=== PATIENT | male | born 1985 | race Caucasian/White ===

== ENCOUNTER 2018-01-22 19:20 | Emergency (ER) | payer MEDICAID ==
[2018-01-22 19:30] VITALS: BP 110/74
--- NOTE | 2018-01-22 20:07 | EDPHY ---
H & P Time Seen by Provider: 01/22/18 19:23 HPI/ROS: 32 yo M presents c/o twisted his right ankle. Review of systems As per HPI General no fever no chills no weakness HEENT no eye pain no eye discharge. No eye redness, no sore throat Respiratory no cough, no shortness of breath Cardiac no chest pain, no peripheral edema GI no abdominal pain, no diarrhea, no constipation, no nausea, no vomiting no flank pain, no hematuria, no dysuria Musculoskeletal no myalgias, positive joint pain Heme no easy bruising, no easy bleeding Endo no polyuria, no polydipsia Skin no rashes, no pruritus Neuro no syncope, no dizziness, no headaches Psych is no suicidal ideation, no homicidal ideation Past Medical/Surgical History: Dry skin Social History: Occasional alcohol Smoking Status: Current every day smoker Physical Exam: 32-year-old male Alert and oriented in no acute distress nontoxic appearance, afebrile Atraumatic normocephalic Neck no JVD Lungs clear to auscultation, no respiratory distress Heart regular rate and rhythm Extremities no cyanosis clubbing edema Right ankle-right lateral malleolus with tenderness and swelling, no gross instability, dorsalis pedis intact, capillary refill intact Constitutional: Initial Vital Signs Temperature (C) 36.6 C 01/22/18 19:28 Heart Rate 105 H 01/22/18 19:28 Respiratory Rate 18 01/22/18 19:28 Blood Pressure 110/74 01/22/18 19:28 O2 Sat (%) 94 01/22/18 19:28 O2 Delivery Mode Room Air Allergies/Adverse Reactions: c-clor Allergy (Uncoded 01/22/18 19:24) Home Medications: Medication Instructions Recorded NK [No Known Home Meds] 01/22/18 Medical Decision Making - Diagnostics Imaging Results: Imaging Impressions Ankle X-Ray 01/22/18 19:25 Impression: 1. No acute fracture about the right ankle. 2. Moderate soft tissue swelling laterally compatible with ankle sprain. ED Course/Re-evaluation: Patient seen and evaluated for injury to right ankle X-ray Positive soft tissue swelling right lateral malleolus Impression Ankle sprain Plan Ankle splint Rest, ice, elevation Follow-up PCP Differential Diagnosis: Differential diagnosis considered but not limited to Ankle fracture, ankle sprain, gout Departure - Departure Disposition: Home, Routine, Self-Care Clinical Impression: Right ankle sprain Condition: Good Instructions: Ankle Sprain (ED), Ankle Stirrup Splint (ED) Additional Instructions: May take ibuprofen or acetaminophen as needed for pain. Rest, ice, elevate! Referrals: NONE *PRIMARY CARE P,. [Primary Care Provider] - As per Instructions
== END 2018-01-22 20:12 | disposition home or self-care (01) ==
LOC: CED 19:20
DX: S93.401A Sprain of unspecified ligament of right ankle, initial encounter (principal); F17.200 Nicotine dependence, unspecified, uncomplicated; X50.9XXA Other and unspecified overexertion or strenuous movements or postures, initial encounter
CPT/HCPCS: 73610-PO; L4350